=== PATIENT | female | born 1980 | race American Indian/Alaskan Native ===

== ENCOUNTER 2017-02-05 12:50 | Emergency (ER) | payer OTHER ==
[2017-02-05 13:08] VITALS: RESP 20
[2017-02-05] MEDS ORDERED: Nitroglycerin 2% Ointment Foilpak UD TOP ONE (14:21)
--- NOTE | 2017-02-05 14:29 | RAD ---
HISTORY: SOB COMPARISON: None available. TECHNIQUE: Chest, one view. FINDINGS: Examination limited by habitus. LUNGS: No focal consolidation. Please note that chest x-ray has limited sensitivity for the detection of pulmonary masses. PLEURA: No significant pleural effusion identified. No definite pneumothorax . CARDIOVASCULAR: The cardiomediastinal silhouette appears within normal limits of size. OSSEOUS STRUCTURES: No acute osseous abnormality identified. VISUALIZED UPPER ABDOMEN: Unremarkable. OTHER FINDINGS: None. IMPRESSION: No focal consolidation, significant pleural effusion, or definite pneumothorax identified.
[2017-02-05] MEDS: Nitroglycerin 2% Ointment Foilpak UD TOP STA (14:35)
[2017-02-05 14:37] LABS: BASO # 0.1 K/uL (0.0-0.2); BASO % 0.6 % (0.0-2.0); EOS # 0.2 K/uL (0.0-0.7); EOS % 2.3 % (0.0-4.0); HEMATOCRIT 39.9 % (34.0-47.0); LYMPH # 3.1 K/uL (1.0-4.3); LYMPH % 29.4 % (20.0-40.0); MEAN CELL VOLUME 87.5 fL (81.0-99.0); MEAN CORPUSCULAR HEMOGLOBIN 29.2 pg (27.0-31.0); MEAN CORPUSCULAR HGB CONC 33.3 g/dL (33.0-37.0); MEAN PLATELET VOLUME 8.9 fL (7.2-11.7); MONO # 0.7 K/uL (0.0-0.8); MONO % 6.9 % (0.0-10.0); NRBC % 0.1 % (0.0-2.0); RED CELL DISTRIBUTION WIDTH 14.6 % (11.5-14.5); WHITE BLOOD COUNT 10.7 K/uL (4.8-10.8)
[2017-02-05 14:47] LABS: INR 1.1; PARTIAL THROMBOPLASTIN TIME 42 SECONDS (21-34)
[2017-02-05 14:49] LABS: RBC URINE 7 /hpf (0-3); URINE BACTERIA OCC (<OCC); URINE BILIRUBIN NEGATIVE (NEGATIVE); URINE BLOOD 1+ (NEGATIVE); URINE COLOR Yellow (YELLOW); URINE GLUCOSE (UA) NORMAL (Normal); URINE KETONE NEGATIVE (NEGATIVE); URINE LEUKOCYTE ESTERASE TRACE Leu/uL (Negative); URINE PROTEIN NEGATIVE (NEGATIVE); URINE UROBILINOGEN NORMAL mg/dL (0.2-1.0); WBC URINE 6 /hpf (0-5)
[2017-02-05 14:53] LABS: CHLORIDE 104 mmol/L (98-107)
--- NOTE | 2017-02-05 14:53 | C.PDOC ---
History Of Present Illness 36 yr old female with PMHx of GERD presents to the ER with complaints of vague left parasternal chest discomfort for the past days, which is digitally reproducible. Patient with history of GERD but states this is not the same. Patient denies radiation of pain, SOB, nausea, vomiting, weakness or numbness. FHx - Mom at age 50 of heart attack. Time Seen by Provider: 02/05/17 13:44 Chief Complaint (Nursing): Chest Pain History Per: Patient History/Exam Limitations: no limitations Onset/Duration Of Symptoms: Days (2) Past Medical History Reviewed: Historical Data, Nursing Documentation, Vital Signs Vital Signs: Last Vital Signs Temp 98.5 F 02/05/17 15:29 Pulse 67 02/05/17 15:29 Resp 20 02/05/17 15:29 BP 123/66 02/05/17 15:29 Pulse Ox 99 02/05/17 17:01 - Medical History PMH: Hyperthyroidism Family History: States: No Known Family Hx - Social History Hx Alcohol Use: Yes Hx Substance Use: No Review Of Systems Except As Marked, All Systems Reviewed And Found Negative. Cardiovascular: Positive for: Other ((+) Left parasternal chest discomfort) Respiratory: Negative for: Shortness of Breath Gastrointestinal: Negative for: Nausea, Vomiting Neurological: Negative for: Weakness, Numbness Physical Exam - Physical Exam Appears: Non-toxic, No Acute Distress Skin: Warm, Dry, No Rash Head: Atraumatic, Normacephalic Chest: Symmetrical, Tenderness (Digitally reproducible tenderness to the left parasternal.) Cardiovascular: Rhythm Regular, No Murmur Respiratory: Normal Breath Sounds, No Rales, No Rhonchi, No Stridor, No Wheezing Extremity: Normal ROM Neurological/Psych: Oriented x3, Normal Speech ED Course And Treatment - Laboratory Results Result Diagrams: 02/05/17 14:31 02/05/17 14:31 Lab Interpretation: Normal (trop/d-dimer neg.) Urine POC: Negative ECG: Interpreted By Me ECG Rhythm: Sinus Rhythm ECG Interpretation: Normal Rate From EC (BPM) O2 Sat by Pulse Oximetry: 99 (RA) Pulse Ox Interpretation: Normal - Radiology CXR: Interpreted by Me, Viewed By Me CXR Interpretation: Yes: No Acute Disease, Heart Size (? RVH) Reevaluation Time: 15:21 Reassessment Condition: Improved Medical Decision Making Medical Decision Making: PLAN: * CXR * EKG * Troponin * D-Dimer * Drug Screen * CBC * CMP * BNP * HCG * Urinalysis * Nitroglycerin TOP NOTE: considering pt's excellent exercise tolerance and h/o GERD with digitally reproducable L parasternal costochondritic CP and normal w/u LOW susp of ACS improvement with NTP may be esophageal improvement. PPI, reassurance and opt f/u for EST with PMD Disposition Doctor Will See Patient In The: Office Counseled Patient/Family Regarding: Studies Performed, Diagnosis - Disposition Referrals: Abeba Kumar MD [Medical Doctor] - Disposition: HOME/ ROUTINE Disposition Time: 15:22 Condition: GOOD Additional Instructions: GERD: Take Protonix 20 mg in the morning every day- see if this resolves your GERD symptoms Have Dr. Kumar refer you for Upper Endoscopy as needed CHest discomfort LOW susp of Cardiac issues Have Dr. Kumar refer you for Exercise Stress Test as needed Costochondritis Motrin 400-600 mg every 6 hours as needed No heavy lifting for 1 week Prescriptions: Pantoprazole Sodium [Protonix] 20 mg PO DAILY #30 ect Instructions: Costochondritis (ED), Gastroesophageal Reflux Disease (ED) Forms: [employer] (Kenyan) - Clinical Impression Clinical Impression: Chest discomfort - Scribe Statement The provider has reviewed the documentation as recorded by the Nyaibmay[employer] Man Provider Attestation: All medical record entries made by the Nyaibe were at my direction and personally dictated by me. I have reviewed the chart and agree that the record accurately reflects my personal performance of the history, physical exam, medical decision making, and the department course for this patient. I have also personally directed, reviewed, and agree with the discharge instructions and disposition.
[2017-02-05 14:54] LABS: POTASSIUM 3.8 mmol/L (3.6-5.2); SODIUM 136 mmol/L (132-148)
[2017-02-05 14:56] LABS: ALB/GLOB RATIO 1.4 (1.0-2.1); AST/SGOT 22 U/L (14-36); BILIRUBIN,TOTAL 0.6 mg/dL (0.2-1.3); CARBON DIOXIDE 21 mmol/L (22-30); GFR AFRICAN-AMERICAN > 60
[2017-02-05 14:57] LABS: ALKALINE PHOSPHATASE 107 U/L (38-126); ALT/SGPT 28 U/L (9-52); BLOOD UREA NITROGEN 7 mg/dL (7-17); CALCIUM 8.9 mg/dl (8.6-10.4); GLUCOSE,RANDOM 77 mg/dL (65-105)
[2017-02-05 15:30] VITALS: BP 123/66; PULSE 67; TEMP 98.5
[2017-02-05 17:01] VITALS: O2SAT 99
--- NOTE | 2017-02-07 10:16 | CARD ---
APPROVED REPORT EKG Measurement Heart [id number] <Conclusion> Normal sinus rhythm with sinus arrhythmia Nonspecific T wave abnormality Abnormal ECG
== END 2017-02-05 15:51 | disposition home or self-care (01) ==
LOC: C.ER 12:50
DX: R07.89 Other chest pain (principal)